=== PATIENT | male | born 1980 | race Caucasian/White ===

== ENCOUNTER 2016-10-16 23:19 | Emergency (ER) | payer OTHER ==
[2016-10-16 23:26] VITALS: TEMP 98.2
[2016-10-17] MEDS ORDERED: SULFAMET/TMP DS PREPACK#2 BTL TAKEHOME ONE (00:15)
[2016-10-17] MEDS ORDERED: CEPHALEXIN 500MG PREPACK#4 BTL TAKEHOME ONE (00:15)
[2016-10-17] MEDS ORDERED: OXYCODONE/APAP 5/325MG PREPACK#4 BTL TAKEHOME ONE (00:15)
--- NOTE | 2016-10-17 00:15 | EDPHY ---
H & P Time Seen by Provider: 10/16/16 23:49 HPI/ROS: CHIEF COMPLAINT: Abscess right axilla HISTORY OF PRESENT ILLNESS: 36-year-old male presents to the emergency department with abscess to the right axilla. He denies any known trauma or injury. He states over last 2 weeks he has had swelling and pain in the right axilla. He has had this few years ago although no treatment and went away on its own. No fevers or chills. Pain especially with range of motion of his right arm. ROS: Denies numbness or tingling in his fingers, retained foreign body or other trauma. Past Medical/Surgical History: Negative Social History: Negative Smoking Status: Current some day smoker Physical Exam: On examination the patient has a large abscess to the inferior aspect of the right axilla. There is surrounding redness induration. Very tender to palpate. There is an area of fluctuance in the central aspect. No other axillary lymphadenopathy palpated. Full range of motion of the right upper extremity. Afebrile. Constitutional: Initial Vital Signs Temperature (C) 36.8 C 10/16/16 23:22 Heart Rate 97 10/16/16 23:22 Respiratory Rate 14 10/16/16 23:22 Blood Pressure 128/101 H 10/16/16 23:22 O2 Sat (%) 96 10/16/16 23:22 O2 Delivery Mode Room Air Allergies/Adverse Reactions: No Allergies [NKDA] Allergy (Verified 10/17/16 00:13) Home Medications: Medication Instructions Recorded Cephalexin [Keflex] 500 mg PO QID #28 cap 10/17/16 Sulfamethox/Tmp 800/160 mg 1 tab PO BID #14 tab 10/17/16 [Bactrim DS] oxyCODONE/APAP 5/325 [Percocet 1 - 2 tab PO Q4-6PRN PRN #11 tab 10/17/16 5/325] MDM/Departure - MDM Procedures: Procedure: Abscess drainage. The patient's abscess was located on the right axilla. Risks, benefits, alternatives discussed with the patient and consent obtained. The abscess was incised with a #11 blade and purulent drainage was expressed. The wound was irrigated and packed with iodoform gauze. The patient tolerated the procedure well. The procedure was performed by myself. Medications Given: Discontinued Medications Cephalexin (Keflex 500 Mg Prepack#4) 1 btl TAKEHOME EDNOW ONE PRN Reason: Protocol Stop: 10/17/16 00:16 Last Admin: 10/17/16 00:24 Dose: 1 btl Oxycodone/Acetaminophen (Percocet 5/325mg Prepack#4) 1 btl TAKEHOME EDNOW ONE Stop: 10/17/16 00:16 Last Admin: 10/17/16 00:22 Dose: 1 btl Trimethoprim/Sulfamethoxazole (Bactrim Ds Prepack#2) 1 btl TAKEHOME EDNOW ONE Stop: 10/17/16 00:16 Last Admin: 10/17/16 00:23 Dose: 1 btl ED Course/Re-evaluation: 36-year-old male presents to the emergency department with an abscess to the right axilla. See procedure note. The patient will be started on Keflex and Bactrim. He was given Percocet for pain. Will call for the results of the culture in 48 hours. He was instructed to return if he developed fever, increasing pain or swelling or any other concerns. - Depart Disposition: Home, Routine, Self-Care Clinical Impression: Abscess of right axilla Condition: Good Instructions: Abscess (ED) Additional Instructions: Return to the emergency department in 2 days to have packing removed. Keflex and Bactrim as directed for 1 week. Ibuprofen 600 mg every 8 hours as needed for pain. Percocet for severe pain as directed. Return if you develop fever, increasing pain or any other concerns. Prescriptions: Cephalexin [Keflex] 500 mg PO QID #28 cap oxyCODONE/APAP 5/325 [Percocet 5/325] 1 - 2 tab PO Q4-6PRN PRN #11 tab PRN Reason: For Moderate To Severe Pain Sulfamethox/Tmp 800/160 mg [Bactrim DS] 1 tab PO BID #14 tab Referrals: [facility] [Other] - As per Instructions
[2016-10-17 00:39] VITALS: BP 116/98; PULSE 90; RESP 18; O2SAT 100
== END 2016-10-17 00:38 | disposition home or self-care (01) ==
PROC: 0H9BXZZ Drainage of Right Upper Arm Skin, External Approach (ICD-10-PCS; principal; 2016-10-16)
DX: L02.411 Cutaneous abscess of right axilla (principal); F17.200 Nicotine dependence, unspecified, uncomplicated

== ENCOUNTER 2016-10-19 15:18 | Emergency (ER) | payer OTHER ==
[2016-10-19 15:22] VITALS: RESP 16
--- NOTE | 2016-10-19 16:15 | EDPHY ---
H & P Time Seen by Provider: 10/19/16 16:01 HPI/ROS: CHIEF COMPLAINT: Abscess recheck HISTORY OF PRESENT ILLNESS: 36-year-old male presents to the emergency department requesting recheck of abscess to the right axilla. The patient was seen in the emergency department 2 days ago and had incision and drainage and packing placed for large abscess in the right axilla. The wound was cultured which was MRSA negative. He has been taking Keflex and Bactrim as prescribed. He states he is feeling much better. ROS: Denies fevers, chills, lymphangitic streaking Past Medical/Surgical History: Negative Social History: and lives in [place] Smoking Status: Current some day smoker Physical Exam: Afebrile. No apparent distress. Right axilla reveals packing in place. There is no erythema noted. There is still some tenderness with very small induration noted. No lymphadenopathy. Full range of motion of the right upper extremity. No lymphangitis. Constitutional: Initial Vital Signs Temperature (C) 36.8 C 10/19/16 15:18 Heart Rate 73 10/19/16 15:18 Respiratory Rate 16 10/19/16 15:18 Blood Pressure 126/66 H 10/19/16 15:18 O2 Sat (%) 98 10/19/16 15:18 O2 Delivery Mode Room Air Allergies/Adverse Reactions: No Allergies [NKDA] Allergy (Verified 10/19/16 15:21) Home Medications: Medication Instructions Recorded Cephalexin [Keflex] 500 mg PO QID #28 cap 10/17/16 Sulfamethox/Tmp 800/160 mg 1 tab PO BID #14 tab 10/17/16 [Bactrim DS] oxyCODONE/APAP 5/325 [Percocet 1 - 2 tab PO Q4-6PRN PRN #11 tab 10/17/16 5/325] MDM/Departure - MDM Procedures: After consent was obtained from the patient, the packing was easily removed and bacitracin dressing applied. No further packing needed. ED Course/Re-evaluation: 36-year-old male presents with recheck abscess right axilla. The packing has been removed. The patient's wound culture was reviewed and he does not have MRSA. Does not need to continue the Bactrim as prescribed. He will only continue Keflex as prescribed. He was now encouraged to apply warm moist compresses. He was instructed to return if he developed fever, increasing pain or any other concerns. - Depart Disposition: Home, Routine, Self-Care Clinical Impression: Encounter for wound re-check, Abscess packing removal Condition: Good Instructions: Abscess Follow-up (ED) Additional Instructions: Continue Keflex as prescribed. Do not need to continue the Bactrim (TMP/SMZ). Warm moist compresses as discussed. Apply antibiotic ointment after soaking. Referrals: [facility],. [Clinic] - 2-3 days, if not improved
[2016-10-19 16:41] VITALS: BP 110/77; PULSE 67; TEMP 98.1; O2SAT 96
== END 2016-10-19 16:40 | disposition home or self-care (01) ==
DX: Z48.01 Encounter for change or removal of surgical wound dressing (principal); F17.200 Nicotine dependence, unspecified, uncomplicated
CPT/HCPCS: G0463